=== PATIENT | female | born 1955 | race Caucasian/White ===

== ENCOUNTER 2022-01-29 06:13 | Inpatient (IN) ==
[2022-01-29] MEDS ORDERED: ONDANSETRON 4 MG/2 ML VIAL IV PRN (08:41)
[2022-01-29] MEDS ORDERED: ACETAMINOPHEN 325 MG TABLET PO PRN (08:41)
[2022-01-29] MEDS ORDERED: MORPHINE 2 MG/1 ML SYRINGE IV PRN (08:41)
[2022-01-29] MEDS ORDERED: BISACODYL 5 MG TABLET PO PRN (08:41)
[2022-01-29] MEDS ORDERED: MAGNESIUM SULF RIDER 2 GM/50 ML PREMIX IV PRN (08:44)
[2022-01-29] MEDS ORDERED: MAGNESIUM SULF RIDER 4 GM/100 ML PREMIX IV PRN (08:44)
[2022-01-29] MEDS ORDERED: oxyCODONE IR 5 MG TABLET PO PRN (09:02)
[2022-01-29] MEDS: MORPHINE 2 MG/1 ML SYRINGE IV PRN ×2 (09:17→16:40)
[2022-01-29 09:29] LABS: Arterial Base Excess iSTAT -1 MMOL/L (-2.5-2.5); Arterial Bicarbonate iSTAT 27.6 MMOL/L (20-26); Arterial O2 Saturation iSTAT 98 % (95-100); Arterial PCO2 iSTAT 69 MM HG (35-48); Arterial PO2 iSTAT 143 MM HG (80-95); Arterial Total CO2 iSTAT 30 MMO/L (23-27)
[2022-01-29 09:31] LABS: Alanine Aminotransferase 20 U/L (13-56); Albumin 3.1 G/DL (3.4-5.0); Alkaline Phosphatase 95 U/L (45-117); Aspartate Amino Transferase 17 U/L (0-37); Bilirubin,Total < 0.39 MG/DL (0.20-1.00); Blood Urea Nitrogen 24 MG/DL (7-18); Calcium 9.6 MG/DL (8.5-10.1); Carbon Dioxide 27 MMOL/L (21-32); Chloride 102 MMOL/L (98-107); Glucose 225 MG/DL (74-106); Potassium 4.7 MMOL/L (3.5-5.1); Sodium 136 MMOL/L (136-145); Total Protein 9.1 G/DL (6.4-8.2)
[2022-01-29 09:34] LABS: INR 1.3; PT Patient Result 13.9 SECS (10.1-12.1); Partial Thromboplastin Time 24.9 SECS (23.7-32.9)
[2022-01-29 09:40] LABS: Basophils % 0.1 % (0.0-0.8); Hematocrit 32.5 VOL% (35.7-47.0); Hemoglobin 9.6 GM/DL (12.0-16.0); Immature Granulocytes % 0.8 %; Immature Granulocytes Absolute 0.08 #; Lymphocytes # 0.3 10*3/uL (1.4-4.0); Lymphocytes % 2.9 % (21.3-54.2); Mean Corpuscular HGB Conc 29.5 GM/DL (32-36); Mean Corpuscular Volume 82.5 FL (87-102); Mean Platelet Volume 8.7 FL (9.6-12.0); Monocytes # 0.2 10*3/uL (0.11-0.8); Monocytes % 1.5 % (1.7-12.7); Neutrophils % 94.7 % (38.7-73.9); Platelet Count 394 T/CUMM (130-400); Red Blood Count 3.94 MC/CUMM (3.8-5.5); Red Cell Distribution Width 18.8 % (9.3-17.3); White Blood Count 9.7 T/CUMM (4-12)
[2022-01-29 09:52] LABS: Lymphocytes 1 % (20-55); Platelet Estimate Adequate; Total Cells Counted 100
[2022-01-29 09:53] LABS: Hypochromia Slight; Microcytosis Slight
[2022-01-29] MEDS: PANTOPRAZOLE 40 MG TABLET PO SCH (10:29)
[2022-01-29] MEDS ORDERED: BUPIVACAINE 0.5% 50 ML VIAL ONE (10:51)
[2022-01-29] MEDS ORDERED: fentaNYL 100 MCG/2 ML VIAL ONE (10:53)
[2022-01-29] MEDS ORDERED: propofoL 200 MG/20 ML VIAL IV ONE (10:53)
[2022-01-29] MEDS ORDERED: KETAMINE 500 MG/10 ML VIAL ONE (10:54)
[2022-01-29] MEDS ORDERED: MIDAZOLAM 2 MG/2 ML VIAL ONE (10:54)
[2022-01-29] MEDS: MORPHINE ER 30 MG TABLET PO SCH ×2 (10:56→13:37)
[2022-01-29] MEDS ORDERED: LIDOCAINE 2% 5 ML VIAL ONE (10:58)
[2022-01-29] MEDS ORDERED: ETOMIDATE 40 MG/20 ML VIAL IV ONE (11:29)
[2022-01-29] MEDS: HYDROmorphone 1 MG/1 ML SYRINGE IV PRN ×4 (12:39→21:20)
[2022-01-29] MEDS ORDERED: GLUCAGON 1 MG VIAL IM PRN (14:29)
[2022-01-29] MEDS ORDERED: DEXTROSE 10% 250 ML BAG IV PRN (14:29)
[2022-01-29] MEDS: INSULIN LISPRO 100 UNIT/ML SUBCUT SCH ×2 (16:06→21:29)
[2022-01-29] MEDS: PIPERACILLIN/TAZOBACTAM 3,375 MG in SODIUM CHLORIDE 0.9% 100 ML IV SCH (16:44)
[2022-01-29] MEDS ORDERED: NON-FORMULARY MEDICATION (Albuterol Sulfate 90 mcg/actuation HFA aerosol inhaler) INH PRN (18:33)
[2022-01-29] MEDS ORDERED: MECLIZINE 25 MG TABLET PO PRN (18:33)
[2022-01-29] MEDS ORDERED: LOPERAMIDE 2 MG CAPSULE PO PRN (18:33)
[2022-01-29] MEDS ORDERED: NON-FORMULARY MEDICATION (Ondansetron Hcl 8 mg tablet) PO SCH (21:00)
[2022-01-29] MEDS: MORPHINE ER 15 MG TABLET PO SCH (23:10)
[2022-01-29] MEDS: VANCOMYCIN INJ 1,000 MG in SODIUM CHLORIDE 0.9% 250 ML IV SCH (23:16)
[2022-01-29] MEDS: ALBUTEROL/IPRATROPIUM 3 ML NEB RESP TX PRN (23:50)
[2022-01-30] MEDS: HYDROmorphone 1 MG/1 ML SYRINGE IV PRN ×5 (00:25→23:40)
[2022-01-30] MEDS: PIPERACILLIN/TAZOBACTAM 3,375 MG in SODIUM CHLORIDE 0.9% 100 ML IV SCH ×4 (01:30→23:40)
[2022-01-30] MEDS: oxyCODONE/ACETAMINOPHEN 5-325 MG TABLET PO PRN (04:21)
[2022-01-30 05:18] LABS: Basophils % 0.1 % (0.0-0.8); Hemoglobin 8.1 GM/DL (12.0-16.0); Immature Granulocytes % 0.5 %; Immature Granulocytes Absolute 0.06 #; Lymphocytes # 0.6 10*3/uL (1.4-4.0); Lymphocytes % 5.1 % (21.3-54.2); Mean Corpuscular Volume 83.3 FL (87-102); Mean Platelet Volume 9.4 FL (9.6-12.0); Monocytes # 1.1 10*3/uL (0.11-0.8); Monocytes % 9.3 % (1.7-12.7); Platelet Count 241 T/CUMM (130-400); Red Blood Count 3.24 MC/CUMM (3.8-5.5); Red Cell Distribution Width 18.7 % (9.3-17.3); White Blood Count 11.3 T/CUMM (4-12)
[2022-01-30 05:37] LABS: % Iron Saturation 6.1 % (18-50); Ferritin 57.7 ng/mL (8-252)
[2022-01-30 05:39] LABS: Calcium 8.8 MG/DL (8.5-10.1); Osmolality,Calculated 280.7 MOS/KG (273-304); Potassium 5.3 MMOL/L (3.5-5.1)
[2022-01-30] MEDS ORDERED: LEVOTHYROXINE 25 MCG TABLET PO SCH (06:00)
[2022-01-30] MEDS: LEVOTHYROXINE 25 MCG TABLET PO SCH (06:50)
[2022-01-30] MEDS: INSULIN LISPRO 100 UNIT/ML SUBCUT SCH ×4 (07:48→20:08)
[2022-01-30] MEDS: PANTOPRAZOLE 40 MG TABLET PO SCH (08:21)
[2022-01-30] MEDS ORDERED: [UNRECOGNIZED DRUG - OTHER] PO SCH (09:00)
[2022-01-30] MEDS ORDERED: [UNRECOGNIZED DRUG - OTHER] PO SCH ×2 (09:00→13:00)
[2022-01-30] MEDS ORDERED: PHENAZOPYRIDINE 95 MG TABLET PO SCH (09:00)
[2022-01-30] MEDS: MORPHINE ER 15 MG TABLET PO SCH ×2 (09:19→21:13)
[2022-01-30] MEDS: ASCORBIC ACID 500 MG TABLET PO SCH (09:19)
[2022-01-30] MEDS: FEXOFENADINE 180 MG TABLET PO SCH (09:19)
[2022-01-30] MEDS: [UNRECOGNIZED DRUG - OTHER] PO SCH (13:07)
[2022-01-30 14:18] LABS: Hematocrit 25.9 VOL% (35.7-47.0); Hemoglobin 7.6 GM/DL (12.0-16.0)
[2022-01-30 14:29] LABS: Lymphocytes,Pleural Fluid 2 %; Neutrophils,Pleural Fluid 98 %; RBC,Pleural Fluid > 100000 T/CUMM
[2022-01-30 14:50] LABS: Total Protein,Body Fluid 3.9 G/DL
[2022-01-30] MEDS: VANCOMYCIN INJ 1,000 MG in SODIUM CHLORIDE 0.9% 250 ML IV SCH (15:44)
[2022-01-30 19:27] LABS: Hematocrit 27.2 VOL% (35.7-47.0)
[2022-01-31 02:08] LABS: Basophils % 0.2 % (0.0-0.8); Eosinophils % 0.2 % (0.00-10.9); Hematocrit 27.3 VOL% (35.7-47.0); Hemoglobin 8.1 GM/DL (12.0-16.0); Immature Granulocytes % 0.5 %; Immature Granulocytes Absolute 0.06 #; Lymphocytes # 1.1 10*3/uL (1.4-4.0); Lymphocytes % 9.8 % (21.3-54.2); Mean Corpuscular HGB Conc 29.7 GM/DL (32-36); Mean Corpuscular Volume 83.7 FL (87-102); Mean Platelet Volume 9.2 FL (9.6-12.0); Monocytes # 1.5 10*3/uL (0.11-0.8); Neutrophils % 76.3 % (38.7-73.9); Platelet Count 209 T/CUMM (130-400); Red Blood Count 3.26 MC/CUMM (3.8-5.5); Red Cell Distribution Width 19.1 % (9.3-17.3); White Blood Count 11.3 T/CUMM (4-12)
[2022-01-31 02:28] LABS: Alanine Aminotransferase 14 U/L (13-56); Albumin 2.6 G/DL (3.4-5.0); Alkaline Phosphatase 64 U/L (45-117); Aspartate Amino Transferase 14 U/L (0-37); Bilirubin,Indirect 0.3 MG/DL (0.0-1.0); Bilirubin,Total < 0.39 MG/DL (0.20-1.00); Blood Urea Nitrogen 28 MG/DL (7-18); Calcium 8.8 MG/DL (8.5-10.1); Carbon Dioxide 28 MMOL/L (21-32); Chloride 104 MMOL/L (98-107); Glucose 98 MG/DL (74-106); Potassium 4.5 MMOL/L (3.5-5.1); Sodium 136 MMOL/L (136-145); Total Protein 7.3 G/DL (6.4-8.2)
[2022-01-31] MEDS: LEVOTHYROXINE 25 MCG TABLET PO SCH (06:41)
[2022-01-31] MEDS: HYDROmorphone 1 MG/1 ML SYRINGE IV PRN ×4 (06:41→23:02)
[2022-01-31] MEDS: INSULIN LISPRO 100 UNIT/ML SUBCUT SCH ×4 (08:53→20:42)
[2022-01-31] MEDS: ASCORBIC ACID 500 MG TABLET PO SCH (09:33)
[2022-01-31] MEDS: PIPERACILLIN/TAZOBACTAM 3,375 MG in SODIUM CHLORIDE 0.9% 100 ML IV SCH ×3 (09:33→23:55)
[2022-01-31] MEDS: MORPHINE ER 15 MG TABLET PO SCH ×2 (09:34→20:47)
[2022-01-31] MEDS: FEXOFENADINE 180 MG TABLET PO SCH (09:34)
[2022-01-31] MEDS: SODIUM ZIRCONIUM CYCLOSILICATE 10 GM PACK PO SCH (09:34)
[2022-01-31] MEDS: PANTOPRAZOLE 40 MG TABLET PO SCH (09:34)
[2022-01-31] MEDS: [UNRECOGNIZED DRUG - OTHER] PO SCH (12:58)
[2022-01-31] MEDS: VANCOMYCIN INJ 1,000 MG in SODIUM CHLORIDE 0.9% 250 ML IV SCH (12:58)
[2022-01-31] MEDS: METOPROLOL TARTRATE 5 MG/5 ML VIAL IV ONE ×2 (21:58→22:06)
[2022-02-01 06:12] LABS: Basophils % 0.3 % (0.0-0.8); Eosinophils # 0.1 10*3/uL (0.0-0.87); Eosinophils % 1.4 % (0.00-10.9); Hematocrit 25.2 VOL% (35.7-47.0); Hemoglobin 7.3 GM/DL (12.0-16.0); Immature Granulocytes % 0.4 %; Immature Granulocytes Absolute 0.03 #; Lymphocytes # 0.7 10*3/uL (1.4-4.0); Lymphocytes % 9.3 % (21.3-54.2); Mean Corpuscular Volume 83.4 FL (87-102); Mean Platelet Volume 9.7 FL (9.6-12.0); Monocytes # 0.6 10*3/uL (0.11-0.8); Monocytes % 8.6 % (1.7-12.7); Platelet Count 177 T/CUMM (130-400); Red Blood Count 3.02 MC/CUMM (3.8-5.5); Red Cell Distribution Width 19.1 % (9.3-17.3)
[2022-02-01] MEDS: LEVOTHYROXINE 25 MCG TABLET PO SCH (06:20)
[2022-02-01] MEDS: HYDROmorphone 1 MG/1 ML SYRINGE IV PRN ×5 (06:20→22:45)
[2022-02-01 06:32] LABS: Calcium 8.8 MG/DL (8.5-10.1); Osmolality,Calculated 275.7 MOS/KG (273-304); Potassium 4.1 MMOL/L (3.5-5.1)
[2022-02-01] MEDS: INSULIN LISPRO 100 UNIT/ML SUBCUT SCH ×4 (08:16→20:45)
[2022-02-01] MEDS: PANTOPRAZOLE 40 MG TABLET PO SCH (08:26)
[2022-02-01] MEDS: ASCORBIC ACID 500 MG TABLET PO SCH (08:26)
[2022-02-01] MEDS: SODIUM ZIRCONIUM CYCLOSILICATE 10 GM PACK PO SCH (08:26)
[2022-02-01] MEDS: MORPHINE ER 15 MG TABLET PO SCH ×2 (08:26→20:45)
[2022-02-01] MEDS: FEXOFENADINE 180 MG TABLET PO SCH (08:26)
[2022-02-01] MEDS: METOPROLOL SUCCINATE XL 25 MG TABLET PO SCH (08:27)
[2022-02-01] MEDS: VANCOMYCIN INJ 1,000 MG in SODIUM CHLORIDE 0.9% 250 ML IV SCH ×2 (08:27→21:45)
[2022-02-01] MEDS: PIPERACILLIN/TAZOBACTAM 3,375 MG in SODIUM CHLORIDE 0.9% 100 ML IV SCH ×2 (09:48→17:33)
[2022-02-01] MEDS ORDERED: SODIUM CHLORIDE 0.9% 1,000 ML IV PRN (10:05)
[2022-02-01] MEDS: [UNRECOGNIZED DRUG - OTHER] PO SCH (13:05)
[2022-02-01] MEDS ORDERED: ADENOSINE 6 MG/2 ML VIAL ONE (15:22)
[2022-02-01] MEDS ORDERED: ADENOSINE 6 MG/2 ML VIAL IV ONE (15:28)
[2022-02-01] MEDS ORDERED: DILTIAZEM 25 MG/5 ML VIAL IV ONE ×2 (15:32→15:35)
[2022-02-01] MEDS: DILTIAZEM INJ 100 MG in SODIUM CHLORIDE 0.9% 100 ML IV SCH (15:47)
[2022-02-01] MEDS: ASPIRIN CHEW 81 MG TABLET PO SCH (15:55)
[2022-02-01] MEDS: ALBUTEROL/IPRATROPIUM 3 ML NEB RESP TX PRN ×2 (15:59→22:05)
[2022-02-01] MEDS: DILTIAZEM CD 120 MG CAPSULE PO SCH (20:45)
[2022-02-02] MEDS: PIPERACILLIN/TAZOBACTAM 3,375 MG in SODIUM CHLORIDE 0.9% 100 ML IV SCH ×3 (01:45→16:47)
[2022-02-02] MEDS: HYDROmorphone 1 MG/1 ML SYRINGE IV PRN ×5 (05:10→19:49)
[2022-02-02 05:37] LABS: Basophils % 0.4 % (0.0-0.8); Eosinophils # 0.1 10*3/uL (0.0-0.87); Eosinophils % 1.2 % (0.00-10.9); Hematocrit 28.7 VOL% (35.7-47.0); Hemoglobin 8.8 GM/DL (12.0-16.0); Immature Granulocytes % 0.6 %; Immature Granulocytes Absolute 0.05 #; Lymphocytes # 0.8 10*3/uL (1.4-4.0); Lymphocytes % 9.3 % (21.3-54.2); Mean Corpuscular HGB Conc 30.7 GM/DL (32-36); Mean Corpuscular Volume 82.2 FL (87-102); Mean Platelet Volume 9.6 FL (9.6-12.0); Monocytes # 0.7 10*3/uL (0.11-0.8); Monocytes % 8.5 % (1.7-12.7); Platelet Count 192 T/CUMM (130-400); Red Blood Count 3.49 MC/CUMM (3.8-5.5); Red Cell Distribution Width 18.5 % (9.3-17.3); White Blood Count 8.5 T/CUMM (4-12)
[2022-02-02 05:51] LABS: Osmolality,Calculated 275.5 MOS/KG (273-304); Potassium 3.8 MMOL/L (3.5-5.1)
[2022-02-02] MEDS: LEVOTHYROXINE 25 MCG TABLET PO SCH (06:25)
[2022-02-02] MEDS: INSULIN LISPRO 100 UNIT/ML SUBCUT SCH ×4 (09:36→21:01)
[2022-02-02] MEDS: VANCOMYCIN INJ 1,000 MG in SODIUM CHLORIDE 0.9% 250 ML IV SCH ×2 (09:36→21:01)
[2022-02-02] MEDS: ASPIRIN CHEW 81 MG TABLET PO SCH (09:37)
[2022-02-02] MEDS: PANTOPRAZOLE 40 MG TABLET PO SCH (09:37)
[2022-02-02] MEDS: ASCORBIC ACID 500 MG TABLET PO SCH (09:37)
[2022-02-02] MEDS: DILTIAZEM CD 120 MG CAPSULE PO SCH ×2 (09:37→21:00)
[2022-02-02] MEDS: FEXOFENADINE 180 MG TABLET PO SCH (09:38)
[2022-02-02] MEDS: MORPHINE ER 15 MG TABLET PO SCH ×2 (09:38→21:01)
[2022-02-02] MEDS: METOPROLOL SUCCINATE XL 25 MG TABLET PO SCH (09:38)
[2022-02-02] MEDS: SODIUM ZIRCONIUM CYCLOSILICATE 10 GM PACK PO SCH (10:02)
[2022-02-02] MEDS ORDERED: METOPROLOL TARTRATE 25 MG TABLET PO ONE (10:51)
[2022-02-02] MEDS ORDERED: POTASSIUM CHLORIDE 20 MEQ TABLET PO ONE (10:55)
[2022-02-02] MEDS ORDERED: MAGNESIUM SULF RIDER 2 GM/50 ML PREMIX IV ONE (10:56)
[2022-02-02] MEDS ORDERED: DIGOXIN 0.5 MG/2 ML AMP IV ONE (11:20)
[2022-02-02] MEDS ORDERED: FUROSEMIDE 20 MG/2 ML VIAL IV ONE ×2 (11:27→22:30)
[2022-02-02] MEDS: [UNRECOGNIZED DRUG - OTHER] PO SCH (13:54)
[2022-02-02] MEDS: DILTIAZEM INJ 100 MG in SODIUM CHLORIDE 0.9% 100 ML IV SCH ×2 (16:22→23:27)
[2022-02-02] MEDS ORDERED: METOPROLOL SUCCINATE XL 25 MG TABLET PO SCH (21:00)
[2022-02-02] MEDS: METOPROLOL SUCCINATE XL 50 MG TABLET PO SCH (21:01)
[2022-02-02] MEDS: ALBUTEROL/IPRATROPIUM 3 ML NEB RESP TX PRN (21:30)
[2022-02-02] MEDS ORDERED: DILTIAZEM 25 MG/5 ML VIAL IV ONE (23:30)
[2022-02-02 23:53] LABS: Potassium 3.6 MMOL/L (3.5-5.1)
[2022-02-03] MEDS: POTASSIUM CHLORIDE 20 MEQ TABLET PO PRN ×2 (00:23→08:37)
[2022-02-03 05:53] LABS: Basophils % 0.1 % (0.0-0.8); Eosinophils # 0.2 10*3/uL (0.0-0.87); Eosinophils % 1.8 % (0.00-10.9); Hematocrit 29.8 VOL% (35.7-47.0); Hemoglobin 9.1 GM/DL (12.0-16.0); Immature Granulocytes % 0.4 %; Immature Granulocytes Absolute 0.04 #; Lymphocytes # 0.6 10*3/uL (1.4-4.0); Lymphocytes % 6.3 % (21.3-54.2); Mean Corpuscular HGB Conc 30.5 GM/DL (32-36); Mean Corpuscular Volume 82.1 FL (87-102); Mean Platelet Volume 9.3 FL (9.6-12.0); Monocytes # 0.8 10*3/uL (0.11-0.8); Monocytes % 8.8 % (1.7-12.7); Neutrophils % 82.6 % (38.7-73.9); Platelet Count 229 T/CUMM (130-400); Red Blood Count 3.63 MC/CUMM (3.8-5.5); Red Cell Distribution Width 18.8 % (9.3-17.3); White Blood Count 9.2 T/CUMM (4-12)
[2022-02-03 06:09] LABS: Calcium 8.9 MG/DL (8.5-10.1); Osmolality,Calculated 272.8 MOS/KG (273-304); Potassium 3.7 MMOL/L (3.5-5.1)
[2022-02-03] MEDS: HYDROmorphone 1 MG/1 ML SYRINGE IV PRN ×3 (06:35→22:50)
[2022-02-03] MEDS: LEVOTHYROXINE 25 MCG TABLET PO SCH (06:48)
[2022-02-03] MEDS: INSULIN LISPRO 100 UNIT/ML SUBCUT SCH ×4 (08:07→20:13)
[2022-02-03] MEDS: ASPIRIN CHEW 81 MG TABLET PO SCH (08:36)
[2022-02-03] MEDS: ASCORBIC ACID 500 MG TABLET PO SCH (08:36)
[2022-02-03] MEDS: FEXOFENADINE 180 MG TABLET PO SCH (08:36)
[2022-02-03] MEDS: MORPHINE ER 15 MG TABLET PO SCH ×2 (08:36→20:13)
[2022-02-03] MEDS: PANTOPRAZOLE 40 MG TABLET PO SCH (08:36)
[2022-02-03] MEDS: METOPROLOL SUCCINATE XL 50 MG TABLET PO SCH ×2 (08:36→20:13)
[2022-02-03] MEDS: DILTIAZEM CD 120 MG CAPSULE PO SCH ×2 (08:37→20:13)
[2022-02-03] MEDS: PIPERACILLIN/TAZOBACTAM 3,375 MG in SODIUM CHLORIDE 0.9% 100 ML IV SCH ×3 (08:37→17:26)
[2022-02-03] MEDS: VANCOMYCIN INJ 1,000 MG in SODIUM CHLORIDE 0.9% 250 ML IV SCH ×2 (08:37→22:50)
[2022-02-03] MEDS: SODIUM ZIRCONIUM CYCLOSILICATE 10 GM PACK PO SCH (09:06)
[2022-02-03] MEDS: FUROSEMIDE 40 MG/4 ML VIAL IV SCH ×2 (11:54→17:25)
[2022-02-03] MEDS ORDERED: POTASSIUM CHLORIDE 20 MEQ TABLET PO ONE (13:36)
[2022-02-03] MEDS: [UNRECOGNIZED DRUG - OTHER] PO SCH (13:42)
[2022-02-03] MEDS: SPIRONOLACTONE 25 MG TABLET PO SCH (14:56)
[2022-02-03] MEDS: DILTIAZEM INJ 100 MG in SODIUM CHLORIDE 0.9% 100 ML IV SCH (16:07)
[2022-02-03] MEDS: SACUBITRIL/VALSARTAN 49-51 MG TABLET PO SCH (20:13)
[2022-02-04] MEDS: PIPERACILLIN/TAZOBACTAM 3,375 MG in SODIUM CHLORIDE 0.9% 100 ML IV SCH ×3 (00:05→15:57)
[2022-02-04 05:40] LABS: Basophils % 0.3 % (0.0-0.8); Eosinophils # 0.4 10*3/uL (0.0-0.87); Hematocrit 31.9 VOL% (35.7-47.0); Hemoglobin 9.6 GM/DL (12.0-16.0); Immature Granulocytes % 0.6 %; Immature Granulocytes Absolute 0.05 #; Lymphocytes # 0.8 10*3/uL (1.4-4.0); Lymphocytes % 8.9 % (21.3-54.2); Mean Corpuscular HGB Conc 30.1 GM/DL (32-36); Mean Platelet Volume 9.2 FL (9.6-12.0); Monocytes # 0.9 10*3/uL (0.11-0.8); Monocytes % 10.1 % (1.7-12.7); Neutrophils % 76.1 % (38.7-73.9); Platelet Count 268 T/CUMM (130-400); Red Blood Count 3.89 MC/CUMM (3.8-5.5); Red Cell Distribution Width 19.3 % (9.3-17.3)
[2022-02-04 05:57] LABS: Calcium 9.2 MG/DL (8.5-10.1); Osmolality,Calculated 275.7 MOS/KG (273-304); Potassium 3.8 MMOL/L (3.5-5.1)
[2022-02-04 06:01] LABS: Folate 8.96 NG/ML (5.38-24.0)
[2022-02-04 06:03] LABS: % Iron Saturation 6.7 % (18-50); Ferritin 73.7 ng/mL (8-252)
[2022-02-04] MEDS: LEVOTHYROXINE 25 MCG TABLET PO SCH (06:33)
[2022-02-04] MEDS: SPIRONOLACTONE 25 MG TABLET PO SCH (08:40)
[2022-02-04] MEDS: ASPIRIN CHEW 81 MG TABLET PO SCH (08:41)
[2022-02-04] MEDS: SACUBITRIL/VALSARTAN 49-51 MG TABLET PO SCH ×2 (08:41→20:11)
[2022-02-04] MEDS: FEXOFENADINE 180 MG TABLET PO SCH (08:41)
[2022-02-04] MEDS: DILTIAZEM CD 120 MG CAPSULE PO SCH ×2 (08:42→21:10)
[2022-02-04] MEDS: POTASSIUM CHLORIDE 20 MEQ TABLET PO PRN (08:42)
[2022-02-04] MEDS: METOPROLOL SUCCINATE XL 50 MG TABLET PO SCH (08:42)
[2022-02-04] MEDS: PANTOPRAZOLE 40 MG TABLET PO SCH (08:42)
[2022-02-04] MEDS: ASCORBIC ACID 500 MG TABLET PO SCH (08:42)
[2022-02-04] MEDS: MORPHINE ER 15 MG TABLET PO SCH ×2 (08:43→20:11)
[2022-02-04] MEDS: INSULIN LISPRO 100 UNIT/ML SUBCUT SCH (09:14)
[2022-02-04] MEDS: FUROSEMIDE 40 MG/4 ML VIAL IV SCH ×2 (09:15→15:57)
[2022-02-04] MEDS: VANCOMYCIN INJ 1,000 MG in SODIUM CHLORIDE 0.9% 250 ML IV SCH (09:49)
[2022-02-04] MEDS: ENOXAPARIN 40 MG/0.4 ML SYRINGE SUBCUT SCH (11:32)
[2022-02-04] MEDS: [UNRECOGNIZED DRUG - OTHER] PO SCH (13:52)
[2022-02-04 18:16] LABS: M. Tuberculosis PCR Result Negative (Negative); M. Tuberculosis PCR Source PLEURAL FLUID
[2022-02-05] MEDS: METOPROLOL SUCCINATE XL 50 MG TABLET PO SCH ×3 (00:10→20:21)
[2022-02-05] MEDS: PIPERACILLIN/TAZOBACTAM 3,375 MG in SODIUM CHLORIDE 0.9% 100 ML IV SCH ×3 (00:10→15:32)
[2022-02-05] MEDS: HYDROmorphone 1 MG/1 ML SYRINGE IV PRN ×3 (03:35→17:31)
[2022-02-05 04:38] LABS: Basophils % 0.4 % (0.0-0.8); Eosinophils # 0.4 10*3/uL (0.0-0.87); Eosinophils % 5.7 % (0.00-10.9); Hematocrit 33.5 VOL% (35.7-47.0); Hemoglobin 9.9 GM/DL (12.0-16.0); Immature Granulocytes % 0.4 %; Immature Granulocytes Absolute 0.03 #; Lymphocytes # 0.9 10*3/uL (1.4-4.0); Lymphocytes % 11.7 % (21.3-54.2); Mean Corpuscular HGB Conc 29.6 GM/DL (32-36); Mean Corpuscular Volume 83.5 FL (87-102); Mean Platelet Volume 9.3 FL (9.6-12.0); Monocytes # 0.7 10*3/uL (0.11-0.8); Monocytes % 8.9 % (1.7-12.7); Neutrophils % 72.9 % (38.7-73.9); Platelet Count 293 T/CUMM (130-400); Red Blood Count 4.01 MC/CUMM (3.8-5.5); Red Cell Distribution Width 19.1 % (9.3-17.3); White Blood Count 7.4 T/CUMM (4-12)
[2022-02-05 04:57] LABS: Calcium 8.7 MG/DL (8.5-10.1); Osmolality,Calculated 281.4 MOS/KG (273-304); Potassium 3.8 MMOL/L (3.5-5.1)
[2022-02-05] MEDS: LEVOTHYROXINE 25 MCG TABLET PO SCH (06:04)
[2022-02-05] MEDS: FUROSEMIDE 40 MG/4 ML VIAL IV SCH (09:09)
[2022-02-05] MEDS: ASCORBIC ACID 500 MG TABLET PO SCH (09:10)
[2022-02-05] MEDS: MORPHINE ER 15 MG TABLET PO SCH ×2 (09:10→20:23)
[2022-02-05] MEDS: SACUBITRIL/VALSARTAN 49-51 MG TABLET PO SCH ×2 (09:11→20:23)
[2022-02-05] MEDS: FEXOFENADINE 180 MG TABLET PO SCH (09:11)
[2022-02-05] MEDS: PANTOPRAZOLE 40 MG TABLET PO SCH (09:11)
[2022-02-05] MEDS: DILTIAZEM CD 120 MG CAPSULE PO SCH ×2 (09:11→20:21)
[2022-02-05] MEDS: ASPIRIN CHEW 81 MG TABLET PO SCH (09:11)
[2022-02-05] MEDS: SPIRONOLACTONE 25 MG TABLET PO SCH (09:31)
[2022-02-05] MEDS: oxyCODONE/ACETAMINOPHEN 5-325 MG TABLET PO PRN (12:25)
[2022-02-05] MEDS: [UNRECOGNIZED DRUG - OTHER] PO SCH (12:26)
[2022-02-05] MEDS: ENOXAPARIN 40 MG/0.4 ML SYRINGE SUBCUT SCH (12:26)
[2022-02-05] MEDS: MORPHINE 2 MG/1 ML SYRINGE IV PRN (13:55)
[2022-02-05] MEDS ORDERED: HYDROmorphone 1 MG/1 ML SYRINGE IV PRN (17:24)
[2022-02-06 04:57] LABS: Basophils # 0.1 10*3/uL (0.0-0.2); Basophils % 0.7 % (0.0-0.8); Eosinophils # 0.5 10*3/uL (0.0-0.87); Eosinophils % 5.5 % (0.00-10.9); Hematocrit 33.2 VOL% (35.7-47.0); Hemoglobin 9.9 GM/DL (12.0-16.0); Immature Granulocytes % 0.5 %; Immature Granulocytes Absolute 0.04 #; Lymphocytes % 12.3 % (21.3-54.2); Mean Corpuscular HGB Conc 29.8 GM/DL (32-36); Mean Corpuscular Volume 83.6 FL (87-102); Mean Platelet Volume 8.8 FL (9.6-12.0); Monocytes # 0.6 10*3/uL (0.11-0.8); Monocytes % 7.4 % (1.7-12.7); Neutrophils % 73.6 % (38.7-73.9); Platelet Count 310 T/CUMM (130-400); Red Blood Count 3.97 MC/CUMM (3.8-5.5); Red Cell Distribution Width 19.3 % (9.3-17.3); White Blood Count 8.1 T/CUMM (4-12)
[2022-02-06 05:17] LABS: Calcium 8.7 MG/DL (8.5-10.1); Osmolality,Calculated 277.8 MOS/KG (273-304); Potassium 4.2 MMOL/L (3.5-5.1)
[2022-02-06] MEDS: LEVOTHYROXINE 25 MCG TABLET PO SCH (05:48)
[2022-02-06] MEDS: DAPAGLIFLOZIN 10 MG TABLET PO SCH (09:07)
[2022-02-06] MEDS: DILTIAZEM CD 120 MG CAPSULE PO SCH ×2 (09:08→20:10)
[2022-02-06] MEDS: METOPROLOL SUCCINATE XL 50 MG TABLET PO SCH ×2 (09:08→20:10)
[2022-02-06] MEDS: MORPHINE ER 15 MG TABLET PO SCH ×2 (09:08→20:11)
[2022-02-06] MEDS: ASCORBIC ACID 500 MG TABLET PO SCH (09:08)
[2022-02-06] MEDS: SPIRONOLACTONE 25 MG TABLET PO SCH (09:09)
[2022-02-06] MEDS: ASPIRIN CHEW 81 MG TABLET PO SCH (09:09)
[2022-02-06] MEDS: PANTOPRAZOLE 40 MG TABLET PO SCH (09:09)
[2022-02-06] MEDS: SACUBITRIL/VALSARTAN 49-51 MG TABLET PO SCH ×2 (09:09→20:09)
[2022-02-06] MEDS: FUROSEMIDE 40 MG TABLET PO SCH (09:09)
[2022-02-06] MEDS: FEXOFENADINE 180 MG TABLET PO SCH (09:09)
[2022-02-06] MEDS: ENOXAPARIN 40 MG/0.4 ML SYRINGE SUBCUT SCH (10:23)
[2022-02-06] MEDS: [UNRECOGNIZED DRUG - OTHER] PO SCH (12:13)
[2022-02-06] MEDS: HYDROmorphone 1 MG/1 ML SYRINGE IV PRN (14:41)
[2022-02-06] MEDS: MORPHINE 2 MG/1 ML SYRINGE IV PRN (17:21)
[2022-02-06] MEDS: oxyCODONE/ACETAMINOPHEN 5-325 MG TABLET PO PRN (23:23)
[2022-02-07 04:22] LABS: Basophils # 0.1 10*3/uL (0.0-0.2); Basophils % 0.6 % (0.0-0.8); Eosinophils # 0.4 10*3/uL (0.0-0.87); Eosinophils % 5.1 % (0.00-10.9); Hematocrit 31.3 VOL% (35.7-47.0); Hemoglobin 9.3 GM/DL (12.0-16.0); Immature Granulocytes % 0.6 %; Immature Granulocytes Absolute 0.05 #; Mean Corpuscular HGB Conc 29.7 GM/DL (32-36); Mean Corpuscular Volume 83.7 FL (87-102); Mean Platelet Volume 8.9 FL (9.6-12.0); Monocytes # 0.7 10*3/uL (0.11-0.8); Monocytes % 8.1 % (1.7-12.7); Neutrophils % 73.6 % (38.7-73.9); Platelet Count 293 T/CUMM (130-400); Red Blood Count 3.74 MC/CUMM (3.8-5.5); Red Cell Distribution Width 19.3 % (9.3-17.3); White Blood Count 8.3 T/CUMM (4-12)
[2022-02-07 04:39] LABS: Calcium 8.6 MG/DL (8.5-10.1); Osmolality,Calculated 278.7 MOS/KG (273-304)
[2022-02-07] MEDS: LEVOTHYROXINE 25 MCG TABLET PO SCH (06:15)
[2022-02-07] MEDS: MORPHINE ER 15 MG TABLET PO SCH ×2 (09:03→20:35)
[2022-02-07] MEDS: ASPIRIN CHEW 81 MG TABLET PO SCH (09:03)
[2022-02-07] MEDS: DAPAGLIFLOZIN 10 MG TABLET PO SCH (09:03)
[2022-02-07] MEDS: FEXOFENADINE 180 MG TABLET PO SCH (09:03)
[2022-02-07] MEDS: ASCORBIC ACID 500 MG TABLET PO SCH (09:04)
[2022-02-07] MEDS: DILTIAZEM CD 120 MG CAPSULE PO SCH ×2 (09:04→20:34)
[2022-02-07] MEDS: SPIRONOLACTONE 25 MG TABLET PO SCH (09:05)
[2022-02-07] MEDS: SACUBITRIL/VALSARTAN 49-51 MG TABLET PO SCH ×2 (09:05→20:32)
[2022-02-07] MEDS: FUROSEMIDE 40 MG TABLET PO SCH (09:05)
[2022-02-07] MEDS: PANTOPRAZOLE 40 MG TABLET PO SCH (09:05)
[2022-02-07] MEDS: METOPROLOL SUCCINATE XL 50 MG TABLET PO SCH ×2 (09:05→20:34)
[2022-02-07] MEDS: ENOXAPARIN 40 MG/0.4 ML SYRINGE SUBCUT SCH (12:34)
[2022-02-07] MEDS: HYDROmorphone 1 MG/1 ML SYRINGE IV PRN ×2 (12:40→18:01)
[2022-02-07] MEDS: [UNRECOGNIZED DRUG - OTHER] PO SCH (12:44)
[2022-02-07] MEDS: MORPHINE 2 MG/1 ML SYRINGE IV PRN (15:28)
[2022-02-08] MEDS: oxyCODONE/ACETAMINOPHEN 5-325 MG TABLET PO PRN ×2 (00:57→16:30)
[2022-02-08] MEDS: LEVOTHYROXINE 25 MCG TABLET PO SCH (05:56)
[2022-02-08] MEDS: ASCORBIC ACID 500 MG TABLET PO SCH (08:57)
[2022-02-08] MEDS: FEXOFENADINE 180 MG TABLET PO SCH (08:57)
[2022-02-08] MEDS: PANTOPRAZOLE 40 MG TABLET PO SCH (08:58)
[2022-02-08] MEDS: DAPAGLIFLOZIN 10 MG TABLET PO SCH (08:58)
[2022-02-08] MEDS: METOPROLOL SUCCINATE XL 50 MG TABLET PO SCH ×2 (08:58→20:17)
[2022-02-08] MEDS: FUROSEMIDE 40 MG TABLET PO SCH (08:58)
[2022-02-08] MEDS: ASPIRIN CHEW 81 MG TABLET PO SCH (08:58)
[2022-02-08] MEDS: DILTIAZEM CD 120 MG CAPSULE PO SCH ×2 (08:58→20:17)
[2022-02-08] MEDS: SACUBITRIL/VALSARTAN 49-51 MG TABLET PO SCH ×2 (08:58→20:17)
[2022-02-08] MEDS: SPIRONOLACTONE 25 MG TABLET PO SCH (08:58)
[2022-02-08] MEDS: MORPHINE ER 15 MG TABLET PO SCH ×2 (08:58→20:17)
[2022-02-08] MEDS: ENOXAPARIN 40 MG/0.4 ML SYRINGE SUBCUT SCH (10:33)
[2022-02-08] MEDS: [UNRECOGNIZED DRUG - OTHER] PO SCH (12:33)
[2022-02-08] MEDS: HYDROmorphone 1 MG/1 ML SYRINGE IV PRN (13:30)
[2022-02-08] MEDS ORDERED: LORazepam 2 MG/1 ML VIAL IV ONE (23:43)
[2022-02-09] MEDS: oxyCODONE/ACETAMINOPHEN 5-325 MG TABLET PO PRN (03:50)
[2022-02-09] MEDS: LEVOTHYROXINE 25 MCG TABLET PO SCH (06:58)
[2022-02-09] MEDS: ASPIRIN CHEW 81 MG TABLET PO SCH (08:51)
[2022-02-09] MEDS: SACUBITRIL/VALSARTAN 49-51 MG TABLET PO SCH (08:51)
[2022-02-09] MEDS: FUROSEMIDE 40 MG TABLET PO SCH (08:52)
[2022-02-09] MEDS: METOPROLOL SUCCINATE XL 50 MG TABLET PO SCH (08:52)
[2022-02-09] MEDS: PANTOPRAZOLE 40 MG TABLET PO SCH (08:52)
[2022-02-09] MEDS: FEXOFENADINE 180 MG TABLET PO SCH (08:52)
[2022-02-09] MEDS: MORPHINE ER 15 MG TABLET PO SCH (08:52)
[2022-02-09] MEDS: ASCORBIC ACID 500 MG TABLET PO SCH (08:52)
[2022-02-09] MEDS: SPIRONOLACTONE 25 MG TABLET PO SCH (08:53)
[2022-02-09] MEDS: DAPAGLIFLOZIN 10 MG TABLET PO SCH (08:53)
[2022-02-09] MEDS: ENOXAPARIN 40 MG/0.4 ML SYRINGE SUBCUT SCH (09:56)
[2022-02-09 12:17] VITALS: BP 123/83
[2022-02-09] MEDS: [UNRECOGNIZED DRUG - OTHER] PO SCH (13:10)
== END 2022-02-09 15:09 | disposition home health service (06) | DRG 180 ==
LOC: SUATTDRO 08:25 → N.TELES 08:25 → N.ICU 08:53
PROVIDERS: ADMIT Internal Medicine; ATTEND Family Medicine